=== PATIENT | female | born 2000 | race Caucasian/White ===

== ENCOUNTER 2020-07-11 13:22 | Outpatient (REF) | payer BC, SELFPAY ==
[2020-07-12 16:27] LABS: Chlamydia Result Negative (Negative); GC Result Negative (Negative)
== END 2020-07-11 13:23 | disposition home or self-care (01) ==
LOC: LBN 13:22
PROVIDERS: PCP Nurse Practitioner Women's Health; Visit Provider Nurse Practitioner Women's Health
DX: Z11.3 Encounter for screening for infections with a predominantly sexual mode of transmission (principal)
CPT/HCPCS: 87491; 87591